=== PATIENT | male | born 1955 | race Caucasian/White ===

== ENCOUNTER 2018-05-14 14:50 | Emergency (ER) | payer OTHER ==
[2018-05-14 15:11] VITALS: BP 133/86
--- NOTE | 2018-05-14 15:16 | UC ---
General HPI - HPI Summary HPI Summary: 62 yo male presents requesting medication refills. He tells me that he recently moved to the area from [place] and has only a few days worth of a couple of his medications. He has been stable with his medication from his PCP in [place] for the last 3 years without changes. He has established with Dr. Matthews locally, but does not have an appointment until 06/11/18. Pt says that he has a PMHx of DM2, HTN, HLD, Depression, GERD, Insomnia, and Crohn's disease. DM2 - he checks his sugars about 3-4 times a week and they have been running around 160, which he says has been about his average. HTN/HLD - Stable with no headache, dizziness, vision changes, chest pain or palpitations. GERD - Controlled with protonix Insomnia - prn use of Belsomra and stable Crohn's - recently has been having intermittent LLQ discomfort and 3-4 days of constipation followed by a large loose BM. He has not taken any OTC constipation. No blood in stool. He tells me that he was supposed to have a recheck colonoscopy in December 2017, but did not attend this appointment. Depression - has been feeling well with Trileptal and Seroquel. No SI/HI. - History of Current Complaint Chief Complaint: UCMedRefill Stated Complaint: MEDICATION REFILL Time Seen by Provider: 05/14/18 15:15 Hx Obtained From: Patient Timing: Intermittent Episodes Lasting: Onset Severity: Moderate Current Severity: Moderate Pain Intensity: 5 - Allergy/Home Medications Allergies/Adverse Reactions: Allergies Allergy/AdvReac Type Severity Reaction Status Date / Time No Known Allergies Allergy Verified 05/14/18 15:12 Home Medications: Home Medications Gabapentin CAP(*) [Neurontin 300 CAP(*)] 300 mg PO BEDTIME 05/14/18 [History Confirmed 05/14/18] OXcarbazepine TAB(*) [Trileptal 300 mg TAB(*)] 300 mg PO BID 05/14/18 [History Confirmed 05/14/18] QUEtiapine TAB* [Seroquel 25 MG TAB*] 50 mg PO DAILY 05/14/18 [History Confirmed 05/14/18] metFORMIN* [Glucophage 1000 MG TAB *] 1,000 mg PO DAILY 05/14/18 [History Confirmed 05/14/18] PMH/Surg Hx/FS Hx/Imm Hx - Additional Past Medical History Additional PMH: HTN HLD Depression GERD Insomnia DM2 - Surgical History Surgical History: Yes Surgery Procedure, Year, and Place: right knee replacement, appy, tonsils, hernia repair - Family History Known Family History: Positive: Cardiac Disease, Hypertension, Diabetes - Social History Occupation: Employed Full-time Lives: Alone Alcohol Use: Rare Substance Use Type: Marijuana Substance Use Comment - Amount & Last Used: daily for pain Smoking Status (MU): Heavy Every Day Tobacco Smoker Review of Systems All Other Systems Reviewed And Are Negative: Yes Constitutional: Positive: Negative Skin: Positive: Negative Eyes: Positive: Negative ENT: Positive: Negative Respiratory: Positive: Negative Cardiovascular: Positive: Negative Gastrointestinal: Positive: Abdominal Pain - Intermittent LLQ Genitourinary: Positive: Negative Motor: Positive: Negative Neurovascular: Positive: Negative Musculoskeletal: Positive: Negative Neurological: Positive: Negative Psychological: Positive: Negative Physical Exam - Summary Physical Exam Summary: GENERAL: NAD. WDWN. No pain distress. SKIN: No rashes, sores, or open wounds. HEENT: Head: AT/NC Eyes: PERRLA. EOM intact. Conjunctiva clear without inflammation or discharge. Ears: Hearing grossly normal. TMs intact, no bulging, erythema, or edema. Nose: Nasal mucosa pink and moist. NTTP maxillary and frontal sinus. Throat: Posterior oropharynx without exudates, erythema, or tonsillar enlargement. Uvula midline. NECK: Supple. Nontender. No lymphadenopathy. CHEST: CTAB. No r/r/w. No accessory muscle use. Breathing comfortably and in no distress. CV: RRR. Without m/r/g. Pulses intact. Brisk cap refill. ABDOMEN: Soft. NTTP. No distention or guarding. Bowel sounds present MSK: FROM and 5/5 strength throughout. No edema. NEURO: Alert. PSYCH: Age appropriate behavior. Triage Information Reviewed: Yes Vital Signs: Initial Vital Signs Temp 98.4 F 05/14/18 15:03 Pulse 83 05/14/18 15:03 Resp 16 05/14/18 15:03 BP 133/86 05/14/18 15:03 Pulse Ox 99 05/14/18 15:03 Vital Signs Reviewed: Yes Course/Dx - Course Course Of Treatment: He is requesting refills for his Mesalamine, Canagliflozin , Crestor, Belsomra, Valsartan, and Protonix. I will refill these prescriptions for a 30 day supply - enough for him to f/u with his PCP on 06/11/18. I will also refer him to GI for further eval/treatment of his crohn's disease. Advised to try OTC miralax daily prn to relieve his constipation. Discussed proper diet and use of high fiber and water diets to aid in digestion and regular BMs. - Differential Dx - Multi-Symptom Provider Diagnoses: DM2. GERD. HTN. HLD. Constipation. Crohn's disease Discharge - Sign-Out/Discharge Documenting (check all that apply): Patient Departure All imaging exams completed and their final reports reviewed: No Studies - Discharge Plan Condition: Stable Disposition: HOME Prescriptions: Canagliflozin (NF) [Invokana (NF)] 300 mg PO DAILY #30 tab Mesalamine (NF) [Lialda (NF)] 4.8 gm PO DAILY #120 tab Pantoprazole TAB (NF) [Protonix TAB (NF)] 40 mg PO DAILY #30 tab Polyethylene Glycol 3350* [Miralax*] 17 gm PO DAILY #1 bottle Rosuvastatin (NF) [Crestor (NF)] 20 mg PO DAILY #30 tab Suvorexant (NF) [Belsomra (NF)] 20 mg PO BEDTIME PRN #30 tab MDD 1 PRN Reason: Insomnia Valsartan TAB* [Diovan TAB*] 320 mg PO DAILY #60 tab Patient Education Materials: Crohn Disease (ED) Referrals: Rodolfo Laboy MD [Medical Doctor] - As Soon As Possible Additional Instructions: If you develop a fever, shortness of breath, chest pain, new or worsening symptoms - please call your PCP or go to the ED. Your blood pressure was mildly elevated at todays visit. Please see your primary provider within 4 weeks for recheck and re-evaluation. 1) Please call GI at the number below to schedule a follow up appointment as soon as possible 2) Please keep your appointment with Dr. Matthews for 06/11/18 for further refills of your medications - Billing Disposition and Condition Condition: STABLE Disposition: Home - Attestation Statements Provider Attestation: Per institutional requirements, I have reviewed the chart, however, I was not consulted specifically or made aware of this patient by the midlevel provider. I did not personally evaluate, interact with , or disposition this patient.
== END 2018-05-14 15:50 | disposition home or self-care (01) ==
LOC: UCEAST 14:50
DX: Z76.0 Encounter for issue of repeat prescription (principal); E11.9 Type 2 diabetes mellitus without complications; I10 Essential (primary) hypertension; K21.9 Gastro-esophageal reflux disease without esophagitis; E78.5 Hyperlipidemia, unspecified; K59.00 Constipation, unspecified; K50.90 Crohn's disease, unspecified, without complications; F32.9 Major depressive disorder, single episode, unspecified; F17.200 Nicotine dependence, unspecified, uncomplicated; Z79.899 Other long term (current) drug therapy
CPT/HCPCS: 99202; G0463